=== PATIENT | male | born 1995 | race African-American/Black ===

== ENCOUNTER → 2016-06-10 | Emergency (ER) | payer SELFPAY ==
[~2016-06-10] MED LIST: CEPHALEXIN MONOHYDRATE 250 MG CAPSULE (FP) ONE; CEPHALEXIN MONOHYDRATE 500 MG CAPSULE (UD) PO ONE
[2016-06-10 02:42] VITALS: TEMP 98.2; BMI 25.7
--- NOTE | 2016-06-10 03:03 | PDOC ---
*Physical Exam - Vital Signs Last Vital Signs Temp Pulse Resp BP Pulse Ox 98.2 F 86 20 136/79 99 06/10/16 02:40 06/10/16 02:40 06/10/16 02:40 06/10/16 02:40 06/10/16 02:40 Medical Decision Making - Medical Decision Making 06/10/16 03:02 agree with care from [facility] *DC/Admit/Observation/Transfer Diagnosis at time of Disposition: Finger fracture, right - Discharge Dispostion Disposition: HOME Condition at time of disposition: Stable - Prescriptions Prescriptions: Cephalexin Monohydrate [Keflex -] 500 mg PO BID #20 capsule Ibuprofen [Motrin -] 600 mg PO Q6H PRN #20 tablet PRN Reason: Mild Pain - Referrals Referrals: Jacobo Chopra MD [Staff Physician] - - Patient Instructions Printed Discharge Instructions: DI for Finger Fracture Additional Instructions: FOLLOW UP WITH DR. CHOPRA (ORTHOPEDIC). CALL TO SCHEDULE APPOINTMENT FOR EVALUATION. TAKE MEDICATIONS PRESCRIBED. MOTRIN OR TYLENOL FOR PAIN NEEDED. KEEP SPLINT APPLIED WHEN OUT OF BED, UNTIL YOU SEE ORTHOPEDIST.
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
[2016-06-10 04:44] VITALS: BP 139/76; PULSE 61
== END | disposition home or self-care (01) ==
LOC: JER 02:35
PROC: 2W3EX1Z Immobilization of Right Hand using Splint (ICD-10-PCS; principal; 2016-06-10)
PROC: 2W3EX1Z Immobilization of Right Hand using Splint (ICD-10-PCS; 2016-06-10)
DX: S62.640A Nondisplaced fracture of proximal phalanx of right index finger, initial encounter for closed fracture (principal); V43.02XA Car driver injured in collision with other type car in nontraffic accident, initial encounter; Y93.89 Activity, other specified; Y92.410 Unspecified street and highway as the place of occurrence of the external cause
CPT/HCPCS: 73130-TC-RT; 99281-25

== ENCOUNTER 2016-08-22 17:11 | Emergency (ER) | payer SELFPAY ==
[2016-08-22 17:16] VITALS: BP 158/102; PULSE 66; TEMP 98.4; BMI 36.2
[2016-08-22] MEDS ORDERED: DIPHTH,PERTUSS(ACELL),TET 0.5 ML DISP.SYRIN IM ONE (17:59)
[2016-08-22] MEDS ORDERED: BACITRACIN 15 GM TUBE TOPICAL OINTMENT ONE (18:37)
--- NOTE | 2016-08-22 18:45 | PDOC ---
History of Present Illness - General Chief Complaint: Laceration Stated Complaint: LACERATION TO HAND Time Seen by Provider: 08/22/16 17:54 History Source: Patient Exam Limitations: No Limitations - History of Present Illness Initial Comments: 08/22/16 19:20 CHIEF COMPLAINT: Laceration palm of left hand. HISTORY OF PRESENT ILLNESS: Patient is a 21-year-old male, no significant medical history currently on no medication reports sustaining a laceration to the palm of his left lateral hand 2 days ago. Was unable to come to emergency department. Received patient with area extremely moist wound edges are slightly macerated,dry. Is superficial and measures approximate 4 cm in length, tetanus is not up-to-date. 08/22/16 19:25 Severity: Yes: moderate Location: reports: hands Past History - Past Medical History Allergies/Adverse Reactions: Allergies Allergy/AdvReac Type Severity Reaction Status Date / Time No Known Allergies Allergy Verified 08/22/16 17:16 Home Medications: Ambulatory Orders NK [No Known Home Medication] 08/22/16 Other medical history: NONE - Psycho/Social/Smoking Cessation Hx Suicidal Ideation: No Smoking History: Never smoked Have you smoked in the past 12 months: No Hx Alcohol Use: Yes (SOCIAL) Drug/Substance Use Hx: No Substance Use Type: None Review of Systems - Review of Systems Constitutional: No: Symptoms Reported Integumentary: Yes: Other (laceration to palmar surface of left lateral hand.) Neurological: No: Paresthesia, Tingling, Tremors Hematologic/Lymphatic: No: Symptoms Reported All Other Systems: Reviewed and Negative *Physical Exam - Vital Signs Last Vital Signs Temp Pulse Resp BP Pulse Ox 98.4 F 66 20 158/102 100 08/22/16 17:13 08/22/16 17:13 08/22/16 17:13 08/22/16 17:13 08/22/16 17:13 - Physical Exam General Appearance: Yes: Appropriately Dressed. No: Apparent Distress Respiratory/Chest: positive: Lungs Clear, Normal Breath Sounds Cardiovascular: positive: Regular Rhythm, Regular Rate Extremity: positive: Normal Capillary Refill, Other. negative: Swelling, Erythema Integumentary: positive: Other (4 cm superficial laceration to palm of left lateral hand with moist wound edges.) Neurologic: positive: Alert, Normal Mood/Affect ED Treatment Course - Medications Given in the ED: ED Medications Discontinued Medications Generic Name Dose Route Start Last Admin Trade Name Tiana PRN Reason Stop Dose Admin Diphtheria/Tetanus/Acell Pertussis 0.5 ml 08/22/16 17:59 08/22/16 18:07 Boostrix - IM 08/22/16 18:00 0.5 ml .ONCE ONE Administration Medical Decision Making - Medical Decision Making 08/22/16 19:25 A/P: Patient with laceration to left hand, greater than 48 hours explained to patient we are unable to suture area closed at this time for higher risk of infection. Area edges are extremely moist and macerated. Cleansed area with normal saline, dry dressing placed on explained to patient that he must allow area to dry out then apply bacitracin with sterile dressing. He verbalized understanding. Explained to patient that area must heal through secondary intent. Verbalized understanding. He stated he was unable to get here prior to the 48 hours. Explained to patient also area may scar or take several weeks to fully heal, he verbalized understanding and is satisfied with care. To follow- up as instructed. *DC/Admit/Observation/Transfer Diagnosis at time of Disposition: Hand laceration Qualifiers: Encounter type: initial encounter Foreign body presence: without foreign body Laterality: left Qualified Code(s): S61.412A - Laceration without foreign body of left hand, initial encounter - Discharge Dispostion Disposition: HOME Condition at time of disposition: Good Admit: No - Referrals Referrals: Agapito Estrada MD [Staff Physician] - - Patient Instructions Printed Discharge Instructions: DI for Laceration Repair Additional Instructions: Please keep area clean and dry. Bacitracin daily After showering please allow to air dry before placing dressing. PLease note that area needs to heal from the inside out. if any increased redness, swelling or signs oif infection return to the ER.
== END 2016-08-22 19:02 | disposition home or self-care (01) ==
LOC: JER 17:11 → JERFT 17:11
PROC: 3E0234Z Introduction of Serum, Toxoid and Vaccine into Muscle, Percutaneous Approach (ICD-10-PCS; principal; 2016-08-22)
DX: S61.412A Laceration without foreign body of left hand, initial encounter (principal); W26.0XXA Contact with knife, initial encounter; Y93.89 Activity, other specified; Y92.038 Other place in apartment as the place of occurrence of the external cause
CPT/HCPCS: 90715; 99281-25

== ENCOUNTER 2016-09-13 19:32 | Emergency (ER) | payer OTHER ==
[2016-09-13 20:31] VITALS: BP 119/80; PULSE 72; TEMP 98.2; BMI 32.1
[2016-09-13] MEDS ORDERED: IBUPROFEN 600 MG TABLET (FP) PO ONE ×2 (22:06→22:09)
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
[2016-09-13 22:38] LABS: URINE APPEARANCE CLEAR; URINE BILIRUBIN NEGATIVE (NEGATIVE); URINE BLOOD NEGATIVE (NEGATIVE); URINE COLOR YELLOW; URINE GLUCOSE (UA) NEGATIVE (NEGATIVE); URINE KETONE NEGATIVE (NEGATIVE); URINE LEUK ESTERASE NEGATIVE (NEGATIVE); URINE NITRITE NEGATIVE (NEGATIVE); URINE PROTEIN NEGATIVE (NEGATIVE)
== END 2016-09-13 23:10 | disposition home or self-care (01) ==
LOC: JERFT 19:32
DX: S20.212A Contusion of left front wall of thorax, initial encounter (principal); M54.5 Low back pain; M25.552 Pain in left hip; V43.52XA Car driver injured in collision with other type car in traffic accident, initial encounter; Y93.89 Activity, other specified; Y92.410 Unspecified street and highway as the place of occurrence of the external cause; F17.210 Nicotine dependence, cigarettes, uncomplicated
CPT/HCPCS: 71101-TC; 73523-TC; 81003; 99281-25

== ENCOUNTER 2016-11-07 21:37 | Emergency (ER) | payer SELFPAY ==
[2016-11-07 21:43] VITALS: BP 174/93; PULSE 129; TEMP 98; BMI 33.3
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
[2016-11-07] MEDS ORDERED: IBUPROFEN 400 MG TABLET (FP) PO ONE ×2 (22:04→22:06)
--- NOTE | 2016-11-08 15:01 | PDOC ---
Patient Follow-up (Call Back) - Post ED Follow - Up Condition at time of discharge: Stable - Disposition Additional Instructions/Notes: Facial bone CT results reported by Dr. Be - slight fracture to R of nasal bone; if patient continues to have pain may f/u with ENT, otherwise no further treatment required. Attempted to call patient, patient's phone number did not appear to reach patient, VM also full. Called father who states he does not have patient's number "because the last time I tried to call, no one picked up. " Called mother and spoke to her; she states she will notify patient and have him call back.
== END 2016-11-08 00:19 | disposition home or self-care (01) ==
LOC: JER 21:37
DX: S00.83XA Contusion of other part of head, initial encounter (principal); Y04.2XXA Assault by strike against or bumped into by another person, initial encounter; Y93.89 Activity, other specified; Y92.89 Other specified places as the place of occurrence of the external cause; Y99.8 Other external cause status; Y07.9 Unspecified perpetrator of maltreatment and neglect; F17.210 Nicotine dependence, cigarettes, uncomplicated
CPT/HCPCS: 70486-TC; 99281-25

== ENCOUNTER 2018-12-03 16:26 | Emergency (ER) | payer OTHER ==
[2018-12-03 16:34] VITALS: TEMP 97.8; BMI 34.7
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
[2018-12-03 18:23] VITALS: BP 146/71; PULSE 85
== END 2018-12-03 19:04 | disposition home or self-care (01) ==
LOC: JERFT 16:26
DX: S60.511A Abrasion of right hand, initial encounter (principal); Y35.813A Legal intervention involving manhandling, suspect injured, initial encounter; Y93.89 Activity, other specified; Y92.89 Other specified places as the place of occurrence of the external cause; Y99.8 Other external cause status
CPT/HCPCS: 70360-TC-FY; 73110-TC-RT-FY; 73130-TC-RT-FY; 73562-TC-RT-FY; 99283-25

== ENCOUNTER 2022-10-26 20:40 | Emergency (ER) | payer OTHER ==
[2022-10-26 20:53] VITALS: BP 162/90; PULSE 83; RESP 20; TEMP 98.2; BMI 34.7
[2022-10-26] MEDS ORDERED: IBUPROFEN 600 MG TABLET (FP) PO ONE ×2 (22:00→22:14)
== END 2022-10-26 22:47 | disposition home or self-care (01) ==
LOC: JERFT 20:40
DX: M54.2 Cervicalgia (principal); M25.562 Pain in left knee; V43.52XA Car driver injured in collision with other type car in traffic accident, initial encounter